=== PATIENT | male | born 1975 | race Caucasian/White ===

== ENCOUNTER 2017-09-15 12:07 | Emergency (ER) | payer MEDICAID ==
[~2017-09-15] VITALS: Ht 188 cm; Wt 87.6 kg
[~2017-09-15 12:07] MED LIST: NO HOME MEDS
[2017-09-15 12:43] VITALS: BP 137/81
[2017-09-15] MEDS ORDERED: PENI500T2 PO (12:45)
[2017-09-15] MEDS ORDERED: IBUP-1984 PO (12:45)
== END 2017-09-15 13:30 | disposition home or self-care (01) ==
LOC: ER 12:08
DX: K04.7 Periapical abscess without sinus (principal); K02.9 Dental caries, unspecified; F17.200 Nicotine dependence, unspecified, uncomplicated
CPT/HCPCS: 99283

== ENCOUNTER 2019-10-03 15:28 | Emergency (ER) | payer MEDICAID ==
[~2019-10-03] VITALS: Ht 188 cm; Wt 67.5 kg
[2019-10-03 15:44] VITALS: BP 110/65
[2019-10-03] MEDS ORDERED: CETI10TA18 PO (16:27)
[2019-10-03] MEDS ORDERED: DIPH25CA83 PO (16:27)
[2019-10-03] MEDS ORDERED: PERM60CR19 TOP (16:27)
== END 2019-10-03 16:45 | disposition home or self-care (01) ==
LOC: ER 15:30
DX: R21 Rash and other nonspecific skin eruption (principal); Z59.0 Homelessness; Z79.899 Other long term (current) drug therapy
CPT/HCPCS: 99283